=== PATIENT | male | born 1945 | race Caucasian/White ===

== ENCOUNTER 2020-12-23 03:45 | Outpatient (CLI) | payer MEDICARE, SELFPAY ==
[2020-12-23 08:56] LABS: Absolute Basophil Count 0.03 10^3/uL (0.0-0.2); Absolute Eosinophil Count 0.17 10^3/uL (0.0-0.7); Absolute Lymphocyte Count 0.83 10^3/uL (1.2-3.4); Absolute Monocyte Count 0.45 10^3/uL (0.1-0.8); Absolute Neutrophil Count 2.71 10^3/uL (1.2-6.7); Basophils % 0.7; Eosinophils % 4.1; HCT 42.7 % (40.0-50.0); HGB 14.7 g/dL (13.5-17.5); Lymphocytes % 19.8; MCH 31.8 pg (27.0-33.0); MCHC 34.4 % (32.0-36.0); MCV 92.4 fL (80-95); MPV 9.3 fL (8.0-11.0); Monocytes % 10.7; Neutrophils % 64.7; Nucleated RBC 0 %; Platelet Count 258 10^3/uL (130-400); RBC 4.62 10^6/uL (4.36-5.78); RDW 12.6 % (11.8-14.1); RDW-SD 42.6 fL; WBC 4.19 10^3/uL (4.4-10.8)
--- NOTE | 2020-12-23 09:00 | DI.NM_ITS ---
Exam(s) NM BONE SCAN WHOLE BODY GRP EXAM: NM BONE SCAN WHOLE BODY GRP CLINICAL HISTORY: METASTATIC PROSTATE CA,STAGING,. TECHNIQUE: Injected Dose: 27 mCi Tc-99m MDP Delayed Images: 2-3 hours. COMPARISON: CT CT CHEST/ABD/PEL W from 12/23/2020 FINDINGS: Symmetric axial uptake. Bilateral renal excretion is identified. There are foci of increased radiotra cer uptake seen in the thoracic spine, sternum and right ribs corresponding to sclerotic foci on the CT scan of the chest, abdomen and pelvis dated 12/23/2020. These are consistent with metastatic diseas e. IMPRESSION: 1. Findings of osseous metastatic disease. DATA REPOSITORY:
[2020-12-23 09:08] LABS: ALT 29 U/L (16-63); AST 18 U/L (15-37); Albumin 3.4 g/dL (3.4-5.0); Alkaline Phosphatase 80 U/L (46-116); Anion Gap 4.5 mmol/L (3-11); BUN 16 mg/dL (7-18); Bilirubin, Total 0.6 mg/dL (0.2-1.0); CO2 30.5 mmol/L (21.0-32.0); CREATININE 0.9 mg/dL (0.70-1.30); Chloride 102 mmol/L (98-107); Glucose 108 mg/dL (74-106); Potassium 4.4 mmol/L (3.5-5.1); Sodium 137 mmol/L (136-145); Total Protein 6.8 g/dL (6.4-8.2)
[2020-12-23] MEDS: Omnipaque 350 MG/ML 50 ML BTL IJ (10:14)
[2020-12-23] MEDS: Breeza Beverage 473 ML BTL PO (10:15)
[2020-12-23] MEDS: Omnipaque 350 MG/ML 100 ML BTL IJ (13:54)
--- NOTE | 2020-12-23 13:55 | DI.CT_ITS ---
Exam(s) CT CHEST/ABD/PEL W EXAM: CT CHEST/ABD/PEL W CLINICAL HISTORY: METASTATIC PROSTATE CA,C61.C79.51,STAGING,SEE OUTSIDE REPORT TECHNIQUE: Imaging Protocol: Axial computed tomography images with coronal and sagittal reformatted images were created and reviewed CONTRAST MATERIAL: Intravenous: Omnipaque 350 Contrast volume:100 mL Oral: Yes COMPARISON: NM NM BONE SCAN WHOLE BODY GRP from 12/23/2020 NM NM BONE SCAN WHOLE BODY GRP from 12/23/2020 FINDINGS: CHEST: Tracheobronchial tree: Patent where visualized. Pulmonary parenchyma: No consolidation or dominant measurable mass. No architectural distortion. Visualized thyroid gland: Unremarkable. Mediastinum and Regina: No dominant adenopathy or fluid collection. Pleura: No effusion or pneumothorax. Heart: Mild cardiomegaly. No coronary artery calcifications are seen. No pericardial effusion. Aorta: Thoracic aorta non-dilated. No evidence of dissection. Lymph nodes: Within normal limits. Soft tissues: Mild gynecomastia. Bones:There are multiple sclerotic foci seen within the ribs, sternum and thoracic spine consistent w ith osseous metastatic disease. ABDOMEN: Liver: Normal density. No measurable mass. Portal, Superior Mesenteric, and Splenic Veins: Unremarkable. Gallbladder and Biliary Tract: No radiodense calculus or dilation. Pancreas: There are calcifications seen in the head and uncinate process of the pancreas. The pancre atic head shows heterogeneous enhancement. No peripancreatic inflammatory changes or focal fluid col lections are seen. Spleen: Normal. Adrenals: No masses seen. Kidneys: Normal size, contour and axis. No radiodense stones or obstructive uropathy. No masses seen. Abdominal Aorta: Abdominal portion non-dilated. Atherosclerosis. Bowel: No obstruction or bowel wall thickening. A normal appendix is present. There is diverticulosi s seen in the colon but no evidence of acute diverticulitis. There is a moderate amount of retained stool throughout the colon. Peritoneal Cavity: No ascites, collection or mesenteric inflammatory response. No free air. Lymph Nodes: Within normal limits. Bones: There are sclerotic foci seen in the lumbar spine consistent with metastatic disease. Soft Tissues: There are bilateral fat containing inguinal hernia, left greater than right. PELVIS: Bladder: There is diffuse thickening of the wall of the urinary bladder. An inflammatory/infectious process or radiation changes should be considered. Reproductive Organs: Status post prostatectomy. Lymph Nodes: Within normal limits. Bones: Please see above. IMPRESSION: 1. Findings of osseous metastatic disease. 2. Diffuse thickening of the wall of the urinary bladder which may reflect infectious/inflammatory pr ocess or radiation changes. 3. Status post prostatectomy. 4. Heterogeneous enhancement of the head of the pancreas. Calcifications are also seen within the he ad of the pancreas. These may be chronic changes but a pancreatic mass or inflammatory process shoul d be considered. Please correlate clinically. If further evaluation is warranted, an MRI may be obt ained. 5. Unremarkable CT scan of the chest. RADIATION DOSE DELIVERED: 1,654.35mGy.cm Total DLP DATA REPOSITORY: All CT scans at this facility are submitted to the National Radiology Data Registry (NRDR) Dose Index Registry (DIR) with the [employer] ([employer]). RADIATION OPTIMIZATION: All CT scans at this facility use at least one of these dose optimization te chniques: automated exposure control; mA and/or kV adjustment per patient size (includes targeted exa ms where dose is matched to clinical indication); or iterative reconstruction.
[2020-12-24 11:00] LABS: PSA, Ultrasensitive 5.1 ng/mL (<= 6.5)
[2020-12-28 16:24] LABS: Testosterone, Total 7.9 ng/dL (240-950)
== END 2020-12-23 04:05 ==
PROVIDERS: Visit Provider Internal Medicine
DX: C61 Malignant neoplasm of prostate (principal); C79.51 Secondary malignant neoplasm of bone
CPT/HCPCS: 74177; 78306; 80053; 84153; 84403; 71260; 85025; J3490; Q9967

== ENCOUNTER 2021-01-26 02:12 | Outpatient (CLI) | payer MEDICARE, SELFPAY ==
[2021-01-26 12:09] LABS: Abs Immature Grans 0.02 10^3/uL (0.0-0.06); Absolute Basophil Count 0.04 10^3/uL (0.0-0.2); Absolute Eosinophil Count 0.03 10^3/uL (0.0-0.7); Absolute Lymphocyte Count 0.64 10^3/uL (1.2-3.4); Absolute Monocyte Count 0.31 10^3/uL (0.1-0.8); Absolute Neutrophil Count 4.78 10^3/uL (1.2-6.7); Basophils % 0.7; Eosinophils % 0.5; HCT 42.7 % (40.0-50.0); HGB 14.4 g/dL (13.5-17.5); Immature Grans % 0.3; MCH 31.6 pg (27.0-33.0); MCHC 33.7 % (32.0-36.0); MCV 93.8 fL (80-95); Monocytes % 5.3; Neutrophils % 82.2; Nucleated RBC 0 %; Platelet Count 290 10^3/uL (130-400); RBC 4.55 10^6/uL (4.36-5.78); RDW 13.3 % (11.8-14.1); RDW-SD 46.3 fL; WBC 5.82 10^3/uL (4.4-10.8)
[2021-01-26 12:53] LABS: ALT 46 U/L (16-63); AST 30 U/L (15-37); Albumin 3.9 g/dL (3.4-5.0); Alkaline Phosphatase 84 U/L (46-116); Anion Gap 3.8 mmol/L (3-11); BUN 13 mg/dL (7-18); Bilirubin, Total 1.1 mg/dL (0.2-1.0); CO2 32.2 mmol/L (21.0-32.0); Calcium 8.8 mg/dL (8.5-10.1); Chloride 99 mmol/L (98-107); Glucose 107 mg/dL (74-106); Potassium 4.6 mmol/L (3.5-5.1); Sodium 135 mmol/L (136-145); Total Protein 6.6 g/dL (6.4-8.2)
[2021-01-27 12:28] LABS: PSA, Ultrasensitive 1.3 ng/mL (<= 6.5)
[2021-01-31 11:23] LABS: Testosterone, Total <7.0 ng/dL (240-950)
== END 2021-01-26 02:13 | disposition home or self-care (01) ==
PROVIDERS: Visit Provider Internal Medicine
DX: C61 Malignant neoplasm of prostate (principal); C79.51 Secondary malignant neoplasm of bone
CPT/HCPCS: 36415; 80053; 84153; 84403; 85025

== ENCOUNTER 2021-11-20 14:05 | Emergency (ER) | payer MEDICARE, SELFPAY ==
[2021-11-20 14:13] VITALS: BP 153/80; PULSE 76; RESP 16; TEMP 36.4; O2SAT 98
--- NOTE | 2021-11-20 14:15 | DI.CT_ITS ---
Exam(s) CT HEAD FACIAL WO EXAM: CT HEAD FACIAL WO CLINICAL HISTORY: R frontal contusion, swelling, pain. TECHNIQUE: Imaging Protocol: Axial computed tomography images with coronal and sagittal reformatted images were created and reviewed COMPARISON: No exams were available for comparison FINDINGS: CT Head: Ventricles and Extra axial spaces: Normal in size and morphology for the patient's age. Hemorrhage: None. Cerebral parenchyma: No acute territorial infarct. Midline shift: None. Brainstem/Cerebellum: Normal. Calvarium: Normal. Visualized Paranasal sinuses/Mastoids: There is moderate mucosal thickening in the left maxillary sin us and mild mucosal thickening in the right maxillary sinus. The remaining visualized paranasal sinu ses and mastoid air cells are clear. There is a small fluid level in the left maxillary sinus. Soft Tissues: Unremarkable. CT Face: Facial Bones: No definite fracture is noted in facial bones. Sinuses and Mastoids: Postsurgical changes are seen in the sinuses with removal of the medial rutherford of the maxillary sinuses. The nasal septum deviates to the right. There is moderate mucosal thicken ing in the right and mild mucosal thickening in the left maxillary sinus. The remaining visualized p aranasal sinuses are clear. Globes, extraocular muscles, optic nerves and retrobulbar fat: Normal. Upper aerodigestive tract: Normal. Mandible and bilateral temporomandibular joints: Normal. Soft tissues: Normal. IMPRESSION: 1. No acute intracranial process. 2. Paranasal sinusitis. Small fluid level in the left maxillary sinus. 3. No acute facial fracture. 4. Results of this exam have been verbally communicated with provider. RADIATION DOSE DELIVERED: 1,330.74mGy.cm Total DLP DATA REPOSITORY: All CT scans at this facility are submitted to the National Radiology Data Registry (NRDR) Dose Index Registry (DIR) with the [employer] ([employer]). RADIATION OPTIMIZATION: All CT scans at this facility use at least one of these dose optimization te chniques: automated exposure control; mA and/or kV adjustment per patient size (includes targeted exa ms where dose is matched to clinical indication); or iterative reconstruction.
--- NOTE | 2021-11-20 14:26 | ED.GENADUL_ITS ---
Discharge Plan Disposition Patient Disposition: HOME Condition: Improving Discharge Details Clinical Impression: Contusion of face Primary Care Provider: Unknown,Unknown ED Provider: Dar Benito Discharge Instructions Instructions: Contusion in Adults (ED) Additional Instructions: You received a tetanus booster today. May continue gentle daily soap and water cleanse of wounds. Your bruising will continue to progress and metabolize with yellow and brown colors. It may drain dependently with gravity. May apply warm compress to area to speed healing. Continue your routine medications. Return for any acute concern. Medical Decision Making Pleasant and delightful 76-year-old male who lives in the state of [place] but forte in [place], [place]. He has been constipated and was leaning forward and pushing to have a bowel movement while sitting on the toilet 2 days ago. He fell forward and struck the floor. He denies prolonged loss of consciousness. He developed bruising and swelling around the right eye and forehead. He has an abrasion to the right forehead which she treated at home. He states his tetanus is out of date. Patient's tetanus is boosted. He was referred for x-ray to rule out intracranial hemorrhage or maxillofacial fracture. The CT showed no acute findings. See the formal report Discussed with patient home management. He is stable and appropriate for discharge to home. HPI General Mode of arrival: ambulatory . Date/Time Provider Initiated Documentation: 11/20/21 14:08 . Limitations to Documentation: no limitations . Information obtained by: patient . History of Present Illness 76 year old M presents to the emergency department with the chief complaint of Right head injury 2 days ago, described as mild, Quality is described as dull, and is localized to the head and right. Patient reports no radiation. Patient started experiencing this day(s) and it has been constant. No relieving factors improve symptom(s), No exacerbating factors reported . Patient notes denies headaches, loss of appetite, nausea/vomiting, syncope and weakness. Patient did receive the following treatments prior to arrival, none Related Data Allergies Allergy/AdvReac Type Severity Reaction Status Date / Time No Known Allergies Allergy Unverified 11/20/21 14:16 General Stated Complaint: HeadInjury BHARGAV: 3 Review of Systems Narrative: 6 systems reviewed and otherwise negative. He denies chest pain, palpitations, shortness of breath or headache. PFSH All Active Problems (Updated 11/20/21 @ 15:01 by Dar Benito MD) Contusion of face (Acute) Social History Smoking/Tobacco Use Status: Never Smoking risk assessment performed?: Yes Alcohol Intake: former Drug use: Never Substance use type: does not use Do you feel safe at home: Yes Do you feel safe in your relationship?: Yes Exam Narrative Exam Narrative: GEN: awake, alert, oriented 3. Pleasant, well groomed, interactive. HEAD: Normocephalic, atraumatic ENT: Mucous membranes moist, oropharynx unremarkable, right periorbital and forehead ecchymosis with mild swelling. Abrasion to right forehead. External ear exam unremarkable EYES: PERRL, EOMI NECK: Full ROM, no DARYL, no menigismus CHEST/RESP: Nontender, clear to auscultation bilateral, no wheeze/rhonchi/rales CARDIOVASCULAR: RRR, no murmur, rub holly. 2+ Rad pulse bilateral ABDOMEN: Soft, nontender, no mass. +Bowel sounds EXT: Full ROM, no edema, no rash Neuro: Grossly normal neurologic exam, conversant, interactive. Psych: Speech fluent, thoughts congruent, affect normal Course Vital Signs Vital signs: Vital Signs Temperature 36.4 C L 11/20/21 14:13 Pulse 76 11/20/21 14:13 Respiratory Rate 16 11/20/21 14:13 Blood Pressure 153/80 H 11/20/21 14:13 Pulse Oximetry 98 11/20/21 14:13 Temperature 36.4 C L 11/20/21 14:13 Temperature Source Temporal Artery Scan 11/20/21 14:13 Pulse 76 11/20/21 14:13 Respiratory Rate 16 11/20/21 14:13 Respiratory Effort Non-Labored 11/20/21 14:17 Blood Pressure 153/80 H 11/20/21 14:13 Blood Pressure Position Supine 11/20/21 14:13 Pulse Oximetry 98 11/20/21 14:13 Oxygen Delivery Method Room Air 11/20/21 14:13 Oxygen Flow Rate 0 11/20/21 14:13 Pain Level 0 11/20/21 14:13
[2021-11-20] MEDS: Tetanus & Diphtheria Tox,ADULT 0.5 ML VIAL IM (14:31)
== END 2021-11-20 15:28 | disposition home or self-care (01) ==
PROVIDERS: Emergency Provider Emergency Medicine
DX: S00.83XA Contusion of other part of head, initial encounter (principal); Z23 Encounter for immunization; W19.XXXA Unspecified fall, initial encounter; W22.8XXA Striking against or struck by other objects, initial encounter
CPT/HCPCS: 90471; 99284; 70450; 70486; 99282

== ENCOUNTER 2021-11-21 03:22 | Outpatient (CLI) | payer MEDICARE, SELFPAY ==
[2021-11-21 09:40] LABS: Abs Immature Grans 0.01 10^3/uL (0.0-0.06); Absolute Basophil Count 0.02 10^3/uL (0.0-0.2); Absolute Lymphocyte Count 0.89 10^3/uL (1.2-3.4); Absolute Monocyte Count 0.46 10^3/uL (0.1-0.8); Absolute Neutrophil Count 2.89 10^3/uL (1.2-6.7); Basophils % 0.4; Eosinophils % 4.5; HCT 35.8 % (40.0-50.0); HGB 12.1 g/dL (13.5-17.5); Immature Grans % 0.2; Lymphocytes % 19.9; MCH 31.8 pg (27.0-33.0); MCHC 33.8 % (32.0-36.0); MCV 94 fL (80-95); MPV 8.9 fL (8.0-11.0); Monocytes % 10.3; Neutrophils % 64.7; Platelet Count 268 10^3/uL (130-400); RDW 13.6 % (11.8-14.1); RDW-SD 47.1 fL; WBC 4.47 10^3/uL (4.4-10.8)
[2021-11-21 09:54] LABS: ALT 19 U/L (16-63); AST 19 U/L (15-37); Albumin 3.2 g/dL (3.4-5.0); Alkaline Phosphatase 68 U/L (46-116); Anion Gap 7.3 mmol/L (3-11); BUN 12 mg/dL (7-18); Bilirubin, Total 0.5 mg/dL (0.2-1.0); CO2 31.7 mmol/L (21.0-32.0); CREATININE 0.9 mg/dL (0.70-1.30); Calcium 8.8 mg/dL (8.5-10.1); Chloride 97 mmol/L (98-107); Glucose 96 mg/dL (74-106); Potassium 3.8 mmol/L (3.5-5.1); Sodium 136 mmol/L (136-145); Total Protein 6.6 g/dL (6.4-8.2)
[2021-11-22 15:54] LABS: PSA, Ultrasensitive 0.01 ng/mL (<= 6.5)
[2021-11-27 17:47] LABS: Testosterone, Total <7.0 ng/dL (240-950)
== END 2021-11-21 03:23 | disposition home or self-care (01) ==
LOC: LBO 03:22
PROVIDERS: Visit Provider Internal Medicine
DX: C61 Malignant neoplasm of prostate (principal); C79.51 Secondary malignant neoplasm of bone
CPT/HCPCS: 36415; 80053; 84153; 84403; 85025

== ENCOUNTER 2022-10-16 15:53 | Outpatient (CLI) | payer MEDICARE, SELFPAY ==
[2022-10-16 13:11] LABS: Absolute Basophil Count 0.01 10^3/uL (0.0-0.2); Absolute Eosinophil Count 0.01 10^3/uL (0.0-0.7); Absolute Lymphocyte Count 0.71 10^3/uL (1.2-3.4); Absolute Monocyte Count 0.26 10^3/uL (0.1-0.8); Absolute Neutrophil Count 2.62 10^3/uL (1.2-6.7); Basophils % 0.3; Eosinophils % 0.3; HCT 28.8 % (40.0-50.0); HGB 9.5 g/dL (13.5-17.5); Lymphocytes % 19.7; MCH 30.1 pg (27.0-33.0); MCV 91 fL (80-95); MPV 9.4 fL (8.0-11.0); Monocytes % 7.2; Neutrophils % 72.5; Platelet Count 244 10^3/uL (130-400); RBC 3.16 10^6/uL (4.36-5.78); RDW 15.6 % (11.8-14.1); RDW-SD 52.1 fL; WBC 3.61 10^3/uL (4.4-10.8)
[2022-10-16 13:25] LABS: ALT 24 U/L (16-63); AST 20 U/L (15-37); Albumin 3.4 g/dL (3.4-5.0); Alkaline Phosphatase 80 U/L (46-116); Anion Gap 5.3 mmol/L (3-11); BUN 18 mg/dL (7-18); Bilirubin, Total 0.7 mg/dL (0.2-1.0); CO2 27.7 mmol/L (21.0-32.0); CREATININE 1.1 mg/dL (0.70-1.30); Calcium 8.5 mg/dL (8.5-10.1); Chloride 103 mmol/L (98-107); Estimated GFR 69.57 (mL/min/1.73m2); Glucose 107 mg/dL (74-106); Potassium 4.4 mmol/L (3.5-5.1); Sodium 136 mmol/L (136-145); Total Protein 6.7 g/dL (6.4-8.2)
[2022-10-18 12:12] LABS: PSA, Ultrasensitive <0.01 ng/mL (<= 6.5)
[2022-10-19 15:33] LABS: Testosterone, Total <7.0 ng/dL (240-950)
== END 2022-10-16 15:54 | disposition home or self-care (01) ==
LOC: LBO 15:53
PROVIDERS: Visit Provider Nurse Practitioner Family
DX: C61 Malignant neoplasm of prostate (principal); C79.51 Secondary malignant neoplasm of bone
CPT/HCPCS: 36415; 80053; 84153; 84403; 85025

== ENCOUNTER 2022-11-27 03:17 | Outpatient (CLI) | payer MEDICARE, SELFPAY ==
[2022-11-27 10:10] LABS: Abs Immature Grans 0.01 10^3/uL (0.0-0.06); Absolute Basophil Count 0.01 10^3/uL (0.0-0.2); Absolute Eosinophil Count 0.08 10^3/uL (0.0-0.7); Absolute Lymphocyte Count 0.66 10^3/uL (1.2-3.4); Absolute Monocyte Count 0.27 10^3/uL (0.1-0.8); Absolute Neutrophil Count 3.25 10^3/uL (1.2-6.7); Basophils % 0.2; Eosinophils % 1.9; HCT 34.6 % (40.0-50.0); Immature Grans % 0.2; Lymphocytes % 15.4; MCH 28.9 pg (27.0-33.0); MCHC 31.8 % (32.0-36.0); MCV 91 fL (80-95); MPV 9.1 fL (8.0-11.0); Monocytes % 6.3; Platelet Count 236 10^3/uL (130-400); RBC 3.81 10^6/uL (4.36-5.78); RDW-SD 57.1 fL; WBC 4.28 10^3/uL (4.4-10.8)
[2022-11-27 10:33] LABS: ALT 22 U/L (16-63); AST 14 U/L (15-37); Albumin 3.1 g/dL (3.4-5.0); Alkaline Phosphatase 76 U/L (46-116); Anion Gap 4.7 mmol/L (3-11); BUN 16 mg/dL (7-18); Bilirubin, Total 0.6 mg/dL (0.2-1.0); CO2 29.3 mmol/L (21.0-32.0); Calcium 8.8 mg/dL (8.5-10.1); Chloride 103 mmol/L (98-107); Glucose 77 mg/dL (74-106); Potassium 4.3 mmol/L (3.5-5.1); Sodium 137 mmol/L (136-145); Total Protein 6.5 g/dL (6.4-8.2)
[2022-11-28 17:23] LABS: PSA, Ultrasensitive <0.01 ng/mL (<= 6.5)
[2022-11-29 15:35] LABS: Testosterone, Total <7.0 ng/dL (240-950)
== END 2022-11-27 03:18 | disposition home or self-care (01) ==
PROVIDERS: Visit Provider Nurse Practitioner Family
DX: C61 Malignant neoplasm of prostate (principal); C79.51 Secondary malignant neoplasm of bone
CPT/HCPCS: 36415; 80053; 84153; 84403; 85025